=== PATIENT | female | born 1960 | race Caucasian/White ===

== ENCOUNTER 2017-01-31 11:54 | Inpatient (IN) | payer OTHER, MEDICARE ==
--- NOTE | ~2017-01-31 | DS ---
Discharge Summary [address] [id number] [facility] [place]. [address] NAME: JOHN PARADA : 60 STATUS : DIS IN PAT#: [id number] AGE: 56 ADM/REG DATE : 01/31/17 MR#: [id number] REPORT SERV DATE: 02/03/17 DICTATED BY: SYLVIA BUSH DATE: 02/02/17 REPORT STATUS : Draft TRANSCRIBED BY: MODL DATE: 02/02/17 ADMISSION DATE: 01/31/2017 DISCHARGE DATE: 02/02/2017 DISCHARGE DIAGNOSES: 1. Acute pancreatitis. 2. Irritable bowel syndrome. 3. History of breast cancer, right. 4. Anxiety. DISCHARGE DISPOSITION: Home with family on bland diet. FOLLOWUP: 1. Follow up with the patient's PCP, Dr. Felix, in one week. 2. Schedule followup with Dr. Holman in three weeks from discharge for gallstones. 3. Schedule outpatient followup with Dr. Morin, new patient visit for IBS history with slow transit time. DISCHARGE MEDICATIONS: Continue home Xanax 2 mg one tablet p.o. t.i.d., Adderall 20 mg one tablet p.o. at 0900 hours and 1200 hours, milk of magnesia as needed 30 mL p.o. liquid p.r.n. constipation, Percocet one tablet p.o. q.6 hours as needed for breakthrough pain, milk of magnesia chewable tablets two to four p.o. daily, lactulose 30 mL p.o. b.i.d. titrate to one BM every day to every other day as tolerated. PERTINENT LABS AND IMAGING: Admission lipase 25,887. AST and ALT were 46 and 40 with alkaline phosphatase of 136. T bilirubin 1. BNP 7. Repeated lipase at 4736 in 24 hours, and on day of discharge, 659, able to tolerate p.o. CT of abdomen and pelvis, acute pancreatitis, gallstones without evidence of acute cholecystitis. No bile duct dilatation. No bowel obstruction. HOSPITAL COURSE: Please see H and P for complete details of HPI. Briefly, Ms. Parada is a 56-year-old female with past medical history of IBS, anxiety, and breast cancer who presents after having sudden acute pain prior to admission in the mid epigastric area. The patient was very reluctant to taking any IV pain medications due to her prior history of allergies, although she did have pain relief with IV pain medication given in the emergency room, was able to be treated with various p.o. medications techniques and aggressive IV fluid rehydration. Within 24 hours, the patient did have improvement, but still unable to tolerate full diet. She was monitored for additional 24 hours. After workup, triglyceride level was within reasonable range with triglycerides being 70, LDL 36, HDL 50, cholesterol overall 100. As the patient has no alcohol history, symptoms of acute pancreatitis was thought secondary to dislodged stone from gallbladder without any dilatation or additional compromised vasculature on imaging. The patient was able to be advanced by day two and tolerating p.o., felt symptomatically improved with pain control, and the patient and at bedside were more comfortable with the patient's discharge planning and it was felt safe to be discharged home with close followup with Dr. Felix. We will additionally schedule or try to schedule also Dr. Holman for followup of gallstone history Discharge Summary [address] [address] NAME: JOHN PARADA : 60 STATUS : DIS IN PAT#: [id number] AGE: 56 ADM/REG DATE : 01/31/17 MR#: [id number] REPORT SERV DATE: 02/03/17 DICTATED BY: SYLVIA BUSH DATE: 02/02/17 REPORT STATUS : Draft TRANSCRIBED BY: AMELIE DATE: 02/02/17 for evaluation and additionally with Dr. Nj for IBS history. All questions were answered to the patient and family at bedside. DICTATED BY: MD VANI Arzola/AMELIE Sylvia Bush MD / [id number] CC: MD Ras Arzola M.D.
--- NOTE | ~2017-01-31 | HP ---
History And Physical [place] [id number] [place]. [address] NAME: JHON GARCIA : 60 STATUS : ADM IN PAT#: [id number] AGE: 56 ADM/REG DATE : 01/31/17 MR#: [id number] REPORT SERV DATE: 01/31/17 DICTATED BY: SYLVIA BUSH DATE: 01/31/17 REPORT STATUS : Draft TRANSCRIBED BY: MODL DATE: 01/31/17 DATE OF ADMISSION: 01/31/2017 CHIEF COMPLAINT: Nausea, vomiting, and diarrhea. HISTORY OF PRESENT ILLNESS: The patient is a 56-year-old female with past medical history of right breast cancer status post chemo radiation surgery followed by Dr. Gavin, questionable CHF although not on medications with reported cardiac function of 46%, unclear this is actual heart failure. The patient does not have volume overload but has followed Dr. Esqueda in the past. Additionally, she has history of anxiety and IBS who presents after having nausea, vomiting that actually happened fairly progressive sudden-onset overnight, has progressed this morning. The patient's symptoms have occurred in upper abdomen, constant moderate severity, sharp not quite radiating but is associated with nausea, vomiting. The patient has recently been on weight loss type diet typically constipated, was taking [id number]-loauora medications in the form of polyethylene glycol, MiraLAX components, and has now had resultant diarrhea but no fevers, chills, or shortness of breath. Symptoms are worsened with eating or palpation. There are no relieving symptoms currently. Symptoms are still currently present. REVIEW OF SYSTEMS: For additional 10-point review of systems negative except for that noted in the HPI. PAST MEDICAL HISTORY: Noted for right breast cancer, anxiety, IBS, unclear cardiac disease. SURGICAL HISTORY: C-sections and breast surgery for resection. SOCIAL HISTORY: Prior smoker but quit seven years ago. No alcohol or illicits. FAMILY HISTORY: Diabetes, coronary artery disease. ALLERGIES: MORPHINE REPORTS NAUSEATED ALTHOUGH TOLERATED IN EMERGENCY ROOM; MEPERGAN WITH PROMETHAZINE AND MEPERIDINE; AND DILAUDID. THE PATIENT RESPECTFULLY DECLINES IV PAIN MEDICATIONS AFTER INITIAL DOSES SHE DOES NOT LIKE THE SIDE EFFECTS OF THESE. PHYSICAL EXAMINATION: VITAL SIGNS: The patient's blood pressure 128/52, pulse 72, respirations 17, and O2 saturation 100%. GENERAL: No acute distress. Pleasant, mildly uncomfortable but slightly improved after pain medications. EYES: No scleral icterus. EOMI. ENT: Dry mucous membranes. Tongue midline. Fairly edentulous. RESPIRATORY: Clear to auscultation. No wheezes, rales. CV: Regular rate. No rubs. No pedal edema. GI: Mild tenderness to mid-epigastric, nonradiating but nondistended, negative rebound. : Deferred. MUSCULOSKELETAL: Moves all extremities x4. History And Physical [address] [place]. [address] NAME: JOHN GARCIA : 60 STATUS : ADM IN [facility]#: [id number] AGE: 56 ADM/REG DATE : 01/31/17 MR#: [id number] REPORT SERV DATE: 01/31/17 DICTATED BY: SYLVIA BUSH DATE: 01/31/17 REPORT STATUS : Draft TRANSCRIBED BY: AMELIE DATE: 01/31/17 SKIN: Warm, dry. Does have radiation changes under right side breast. LYMPH: No cervical or supraclavicular lymphadenopathy. HEME: No bleeding or bruising. NEURO: Alert and oriented. Moves all extremities. Symmetrical strength bilaterally. PSYCH: Appropriate mood and affect. DATA: CT noted for pancreatitis but no gallstones or evidence of acute cholecystitis. No bile duct dilatation. No bowel obstruction. BNP 7. CMP; pertinent abnormal, glucose of 161, alkaline phosphatase 136, AST 46, lipase 25,887, BUN creatinine 12 and 0.83, potassium 4.4. Urinalysis; negative leukocyte esterase, nitrites. CBC; WBC count 8.5 with H and H 17 and 48.2, platelets 139. HOME MEDICATIONS: Xanax 2 mg q.3 hours, Adderall 20 mg p.o. at 9 o'clock and 12 o'clock, magnesium, milk of magnesia 4 tablets daily for constipation. ASSESSMENT AND PLAN: 1. Acute pancreatitis. 2. Anxiety. 3. Cardiac disease with questionable congestive heart failure. 4. Right breast cancer in remission. 5. Irritable bowel syndrome. PLAN: 1. For acute pancreatitis, no alcohol history, does have gallstones but no noted gallstone in canal at this time. Possibly already dislodged. We will check lipid panel. No recent new medications or confounding medications appreciated at this time. IV fluids although we will decrease bolus dose as patient reportedly has cardiac function of 46%. We will need to confirm from Dr. Esqueda's note if this is ejection fraction as the patient has heart failure, and the patient is not reported on any medications including no aspirin. I would like to confirm the patient's cardiac history but will decrease total bolus fluid to prevent volume overload. BNP currently is 7. 2. We will advance to clears when tolerates and reassess in a.m. Pain is reproducible, however, the patient significantly concerned about IV pain medication and is even reluctant to doing p.o. pain medication due to side effects. We will make at least p.o. medication available to patient and continue reassess for IV. Continue bowel rest and monitor and repeat lipase in a.m. 3. Anxiety. Continue home p.r.n. medications. 4. Questionable cardiac history. We will try to obtain records to confirm that this is heart failure although the patient clinically is not volume overloaded. Does not have any JVD, any gross systolic ejection murmurs currently on physical exam, and no pedal edema. We will continue to treat underlying pancreatitis and monitor fluid volume. 5. Right breast cancer followed by Dr. Gavin status post chemo, radiation, and surgery treated in 2008. History And Physical [address] [address] NAME: JOHN GARCIA : 60 STATUS : ADM IN [facility]#: [id number] AGE: 56 ADM/REG DATE : 01/31/17 MR#: [id number] REPORT SERV DATE: 01/31/17 DICTATED BY: SYLVIA BUSH DATE: 01/31/17 REPORT STATUS : Draft TRANSCRIBED BY: MODL DATE: 01/31/17 6. Irritable bowel syndrome. Supportive treatment with p.r.n. medications. I anticipate greater than two midnight inpatient stay due to symptoms, severity of pancreatitis, and monitoring of clinical response. DDN/MODL Sylvia Bush MD / [id number] CC: FarheenChester Flanagan M.D.
[2017-01-31 11:39] LABS: BASOPHILS 0.1 %; BASOPHILS ABSOLUTE 0.01 10/3/uL (0.0-0.16); EOSINOPHILS 0.1 %; EOSINOPHILS ABSOLUTE 0.01 10/3/uL (0.0-0.53); ER CBC TAT 0 Hrs 09 Mins; HEMATOCRIT 48.2 % (36.0-48.0); IMMATURE GRANULOCYTES 0.1 %; IMMATURE GRANULOCYTES ABSOLUTE 0.01 10/3/uL (0.0-0.11); LYMPHOCYTES 5.5 %; LYMPHOCYTES ABSOLUTE 0.47 10/3/uL (0.67-4.30); MANUAL DIFF NO %; MEAN CORPUS HGB CONC 35.3 g/dL (32.0-36.0); MEAN CORPUSCULAR HEMOGLOB 30.6 pg (26.0-34.0); MEAN CORPUSCULAR VOLUME 86.7 fL (80-100); MEAN PLATELET VOLUME 10.4 fL (9.2-13.0); MONOCYTES 1.6 %; MONOCYTES ABSOLUTE 0.14 10/3/uL (0.21-1.20); NEUTROPHILS 92.6 %; NEUTROPHILS ABSOLUTE 7.87 10/3/uL (2.02-8.40); PLATELET COUNT 139 10/3/uL (150-400); RBC DISTRIBUTION WIDTH 14.3 % (12.0-16.0); RED CELL COUNT 5.56 10/6/uL (4.0-5.6); WHITE BLOOD CELLS 8.5 10/3/uL (4.5-10.5)
[2017-01-31 11:41] LABS: ASCORBIC ACID (UR NOT ORDER) NEG (NEG); BILIRUBIN, URINE NEGATIVE (NEG); ER URINALYSIS TAT 0 Hrs 11 Mins; KETONE, URINE TRACE MG/DL (NEG); LEUKOCYTE ESTERASE(NOT OR NEG (NEG); NITRITE (URINE) NEG (NEG); WBC (NOT ORDERED) (RFLEX) < 1 (0-5)
[2017-01-31 11:54] LABS: A/G RATIO 1.4 (0.7-1.9); ALBUMIN 4.7 G/DL (3.5-5.0); ALKALINE PHOSPHATASE 136 U/L (45-117); BUN (BLOOD UREA NITROGEN) 12 MG/DL (6-23); CHLORIDE, SERUM 104 MMOL/L (96-112); CO2 (CARBON DIOXIDE) 29 MMOL/L (24-34); CREATININE 0.83 MG/DL (0.55-1.02); GFR AFRICAN AMERICAN 91 ML/MIN (>=60); GFR NON AFRICAN AMERICAN 79 ML/MIN (>=60); GLOBULIN 3.4 G/DL (2.5-4.1); GLUCOSE, SERUM 161 MG/DL (60-99); POTASSIUM, SERUM 4.4 MMOL/L (3.5-5.3); SGOT(AST) 46 U/L (5-40); SGPT(ALT) 40 U/L (5-65); SODIUM, SERUM 138 MMOL/L (135-148); TOTAL PROTEIN 8.1 G/DL (6.0-8.5)
[2017-01-31] MEDS ORDERED: ADDERALL20 MG PO (14:03)
[2017-01-31] MEDS ORDERED: XANAX2 MG PO (14:03)
[2017-01-31] MEDS ORDERED: PHILLIPS MOM311 M1 PO (14:05)
[2017-02-01 06:29] LABS: BASOPHILS 0.2 %; BASOPHILS ABSOLUTE 0.01 10/3/uL (0.0-0.16); EOSINOPHILS 0.6 %; EOSINOPHILS ABSOLUTE 0.04 10/3/uL (0.0-0.53); IMMATURE GRANULOCYTES 0.2 %; IMMATURE GRANULOCYTES ABSOLUTE 0.01 10/3/uL (0.0-0.11); LYMPHOCYTES 12.2 %; LYMPHOCYTES ABSOLUTE 0.76 10/3/uL (0.67-4.30); MEAN CORPUS HGB CONC 34.6 g/dL (32.0-36.0); MEAN CORPUSCULAR HEMOGLOB 30.1 pg (26.0-34.0); MEAN CORPUSCULAR VOLUME 87.1 fL (80-100); MEAN PLATELET VOLUME 10.1 fL (9.2-13.0); MONOCYTES 5.3 %; MONOCYTES ABSOLUTE 0.33 10/3/uL (0.21-1.20); NEUTROPHILS 81.5 %; NEUTROPHILS ABSOLUTE 5.08 10/3/uL (2.02-8.40); PLATELET COUNT 139 10/3/uL (150-400); RBC DISTRIBUTION WIDTH 14.7 % (12.0-16.0); WHITE BLOOD CELLS 6.2 10/3/uL (4.5-10.5)
[2017-02-01 06:30] LABS: HEMATOCRIT 37.3 % (36.0-48.0); HEMOGLOBIN 12.9 g/dL (12.0-16.0); MANUAL DIFF NO %; RED CELL COUNT 4.28 10/6/uL (4.0-5.6)
[2017-02-01 06:42] LABS: BUN (BLOOD UREA NITROGEN) 10 MG/DL (6-23); CALCIUM, SERUM 7.4 MG/DL (8.5-10.4); CHLORIDE, SERUM 110 MMOL/L (96-112); CHOLESTEROL 100 MG/DL (< 200); CO2 (CARBON DIOXIDE) 26 MMOL/L (24-34); CREATININE 0.63 MG/DL (0.55-1.02); GFR AFRICAN AMERICAN 116 ML/MIN (>=60); GFR NON AFRICAN AMERICAN 100 ML/MIN (>=60); GLUCOSE, SERUM 100 MG/DL (60-99); HDL CHOLESTEROL 50 MG/DL (> 49); LDL CHOLESTEROL 36 MG/DL (< 130); NON-HDL CHOLESTEROL 50 MG/DL (< 160); POTASSIUM, SERUM 3.9 MMOL/L (3.5-5.3); SODIUM, SERUM 142 MMOL/L (135-148); TRIGLYCERIDE 70 MG/DL (< 150)
[2017-02-02] MEDS ORDERED: PCET PO (10:32)
[2017-02-02] MEDS ORDERED: ENULOSE (10:34)
== END 2017-02-02 14:23 | disposition home or self-care (01) | DRG 440 ==
LOC: ER 11:54 → 7NO 14:32
PROVIDERS: Physician Assistant; Student in an Organized Health Care Education/Training Program
DX: K85.90 Acute pancreatitis without necrosis or infection, unspecified (principal); F41.9 Anxiety disorder, unspecified; Z85.3 Personal history of malignant neoplasm of breast; K58.9 Irritable bowel syndrome, unspecified
CPT/HCPCS: 74176; 80048; 80053; 80061; 81001; 83690; 83735; 83880; 85025; 96374; 96375; 99285; A9270-GY; J2405